=== PATIENT | male | born 2000 | race Caucasian/White ===

== ENCOUNTER 2021-07-05 00:43 | Emergency (ER) | payer MEDICAID ==
[~2021-07-05] VITALS: Ht 167.6 cm; Wt 54.0 kg
[2021-07-05 00:58] VITALS: BP 121/66
== END 2021-07-05 01:30 | disposition left against medical advice (07) ==
LOC: EDBD 00:43 → ER 00:43
DX: Z53.21 Procedure and treatment not carried out due to patient leaving prior to being seen by health care provider (principal)